=== PATIENT | female | born 1980 | race Caucasian/White ===

== ENCOUNTER 2018-08-22 13:46 | Emergency (ER) | payer MEDICARE, MEDICAID ==
[2018-08-22] MEDS ORDERED: Ketorolac Tromethamine 30 MG/ML VIAL ONE (14:31)
--- NOTE | 2018-08-22 14:33 | RAD ---
LUMBAR SPINE 3 VIEWS: Date: 08/22/18 HISTORY: Low back pain. FINDINGS/IMPRESSION: No fracture, subluxation, or bony destruction is seen. There is minimal levoscoliosis in the lumbar s pine. Degenerative changes are noted at T11-12 level. POS: [facility]
== END 2018-08-22 14:44 | disposition home or self-care (01) ==
LOC: SCSER 13:46
DX: M54.5 Low back pain (principal); L25.9 Unspecified contact dermatitis, unspecified cause; Z21 Asymptomatic human immunodeficiency virus [HIV] infection status; F17.210 Nicotine dependence, cigarettes, uncomplicated; F32.9 Major depressive disorder, single episode, unspecified; F90.9 Attention-deficit hyperactivity disorder, unspecified type; Z79.899 Other long term (current) drug therapy
CPT/HCPCS: 72100; 96372; J1885